=== PATIENT | male | born 1980 | race Hispanic/Latino ===

== ENCOUNTER 2017-05-08 08:48 | Emergency (ER) | payer SELFPAY ==
[2017-05-08] MEDS ORDERED: ONDANSETRON ODT 4 MG TAB ONE (09:01)
[2017-05-08 09:42] LABS: RAPID GROUP A STREP NEGATIVE (NEGATIVE)
[2017-05-08] MEDS ORDERED: PROMETHAZINE HCL 25 MG/ML 1ML AMPULE IM ONE (10:50)
[2017-05-08] MEDS ORDERED: SODIUM CHLORIDE 0.9% 1000ML 1,000 ML IV ONE (10:50)
[2017-05-08 10:56] LABS: BASOPHILS % (AUTO) 0.4 % (0.0-5.0); EOSINOPHILS % (AUTO) 5.7 % (0.0-8.0); HEMATOCRIT 51.2 % (42-54); MEAN CORPUSCULAR HEMOGLOBIN 31.6 pg (27.0-33.0); MEAN CORPUSCULAR HGB CONC 34.9 g/dL (32.0-36.0); MEAN CORPUSCULAR VOLUME 90.5 fL (79-99); MONOCYTES % (AUTO) 7.8 % (3.0-13.0); NEUTROPHILS % (AUTO) 66.1 % (40.0-77.0); NUCLEATED RED BLOOD CELLS 0.1 % (0.0-0.19); PLATELET COUNT (AUTO) 299 K/uL (130-400); RED BLOOD CELL COUNT(AUTO) 5.65 MIL/uL (4.50-6.20); RED CELL DISTRIBUTION WIDTH 13.3 % (11.0-15.5)
[2017-05-08 11:07] LABS: CREATININE 1.1 mg/dL (0.5-1.5); POTASSIUM 4.5 mmol/L (3.5-5.1)
[2017-05-08 11:13] LABS: BILIRUBIN,TOTAL 0.7 mg/dL (0.2-1.0); TOTAL PROTEIN, SERUM 8.1 g/dL (6.0-8.3)
== END 2017-05-08 14:26 | disposition home or self-care (01) ==
LOC: EDH 08:48
DX: K52.9 Noninfective gastroenteritis and colitis, unspecified (principal)
CPT/HCPCS: 36415; 71046; 80053; 82550; 83690; 84484; 85025; 87804 ×2; 87880; 93005; 96365; 99285; J2550; J7030

== ENCOUNTER 2018-05-13 23:44 | Emergency (ER) | payer OTHER ==
[2018-05-14 00:13] LABS: BASOPHILS % (AUTO) 1.3 % (0.0-5.0); EOSINOPHILS % (AUTO) 10.9 % (0.0-8.0); HEMATOCRIT 48.9 % (42-54); LYMPHOCYTES % (AUTO) 31.5 % (21.0-51.0); MEAN CORPUSCULAR HEMOGLOBIN 31.1 pg (27.0-33.0); MEAN CORPUSCULAR HGB CONC 34.4 g/dL (32.0-36.0); MEAN CORPUSCULAR VOLUME 90.6 fL (79-99); MONOCYTES % (AUTO) 7.2 % (3.0-13.0); NEUTROPHILS % (AUTO) 49.1 % (40.0-77.0); NUCLEATED RED BLOOD CELLS 0.1 % (0.0-0.19); PLATELET COUNT (AUTO) 252 K/uL (130-400); RED BLOOD CELL COUNT(AUTO) 5.39 MIL/uL (4.50-6.20); RED CELL DISTRIBUTION WIDTH 13.1 % (11.0-15.5); WHITE BLOOD COUNT (AUTO) 7.8 K/uL (4.8-10.8)
[2018-05-14 00:19] LABS: BILIRUBIN,URINE Negative (NEGATIVE); COLOR,URINE Yellow (YELLOW); GLUCOSE, URINE (UA) Negative (NEGATIVE); KETONES,URINE Negative (NEGATIVE); LEUKOCYTE ESTERASE ,URINE Negative (NEGATIVE); NITRATE,URINE Negative (NEGATIVE); OCCULT BLOOD,URINE Negative (NEGATIVE); PH,URINE 6.5 (5.0-8.0); PROTEIN,URINE Negative (NEGATIVE)
[2018-05-14 00:22] LABS: APPEARANCE,URINE CLEAR (CLEAR)
[2018-05-14 00:27] LABS: CARBON DIOXIDE 25 mmol/L (21-32); CHLORIDE 103 mmol/L (101-111); CREATININE 0.9 mg/dL (0.5-1.5); GLOMERULAR FILTR. RATE CALC 101 mL/min (>60); GLUCOSE,RANDOM 119 mg/dL (70-105); POTASSIUM 3.9 mmol/L (3.5-5.1); SODIUM SERUM 141 mmol/L (136-145); UREA NITROGEN, BLOOD 16 mg/dL (7-18)
[2018-05-14 00:27] LABS: AMPHET/METH SCREEN,URINE NEGATIVE (NEGATIVE); BARBITURATE SCREEN, URINE NEGATIVE (NEGATIVE); BENZODIAZEPINES SCREEN,URINE NEGATIVE (NEGATIVE); CANNABINOID SCREEN,URINE NEGATIVE (NEGATIVE); COCAINE SCREEN,URINE POSITIVE (NEGATIVE); OPIATE SCREEN,URINE NEGATIVE (NEGATIVE); PHENCYCLIDINE SCREEN,URINE NEGATIVE (NEGATIVE)
[2018-05-14 00:31] LABS: ALANINE AMINOTRANSFERASE 79 U/L (12-78); ALBUMIN 3.6 g/dL (3.5-5.0); AMYLASE 56 U/L (25-115); ASPARTATE AMINOTRANSFERASE 30 U/L (10-37); BILIRUBIN,TOTAL 0.4 mg/dL (0.2-1.0); CREATINE KINASE, TOTAL 147 U/L (21-232); LIPASE 301 U/L (114-286); TOTAL PROTEIN, SERUM 7.6 g/dL (6.0-8.3)
[2018-05-14 00:41] LABS: ALCOHOL, BLOOD < 3 mg/dL (0-10)
[2018-05-14] MEDS ORDERED: HYOSCYAMINE SULFATE 0.125 MG TAB.SUBL SL ONE (01:08)
== END 2018-05-14 01:55 | disposition home or self-care (01) ==
LOC: EDH 23:44
DX: R10.32 Left lower quadrant pain (principal); F14.10 Cocaine abuse, uncomplicated; F10.20 Alcohol dependence, uncomplicated
CPT/HCPCS: 36415; 71045; 74176; 80053; 80305; 81003; 82150; 82550; 83690; 84484; 85025; 93005; 99284; G0480

== ENCOUNTER 2021-12-21 07:38 | Emergency (ER) | payer OTHER ==
[~2021-12-21] VITALS: Ht 165.1 cm; Wt 86.2 kg
[2021-12-21] MEDS ORDERED: MORPHINE 4 MG SYG IVP ONE (08:00)
[2021-12-21 08:22] LABS: BASOPHILS % (AUTO) 0.7 % (0.0-5.0); EOSINOPHILS % (AUTO) 3.7 % (0.0-8.0); HEMATOCRIT 46.1 % (42-54); LYMPHOCYTES % (AUTO) 29.6 % (21.0-51.0); MEAN CORPUSCULAR HEMOGLOBIN 31.2 pg (27.0-33.0); MEAN CORPUSCULAR HGB CONC 35.6 g/dL (32.0-36.0); MEAN CORPUSCULAR VOLUME 87.6 fL (79-99); MONOCYTES % (AUTO) 9.4 % (3.0-13.0); NEUTROPHILS % (AUTO) 55.9 % (40.0-77.0); PLATELET COUNT (AUTO) 273 K/uL (130-400); RED BLOOD CELL COUNT(AUTO) 5.26 MIL/uL (4.50-6.20); RED CELL DISTRIBUTION WIDTH 13.1 % (11.0-15.5); WHITE BLOOD COUNT (AUTO) 9.2 K/uL (4.8-10.8)
[2021-12-21 08:34] LABS: CARBON DIOXIDE 26 mmol/L (21-32); CHLORIDE 101 mmol/L (101-111); CREATININE 0.9 mg/dL (0.5-1.5); GLOMERULAR FILTR. RATE CALC 100 mL/min (>60); GLUCOSE,RANDOM 94 mg/dL (70-105); POTASSIUM 3.7 mmol/L (3.5-5.1); SODIUM SERUM 136 mmol/L (136-145); UREA NITROGEN, BLOOD 8 mg/dL (7-18)
[2021-12-21 08:47] LABS: ALANINE AMINOTRANSFERASE 80 U/L (12-78); ALBUMIN 3.5 g/dL (3.5-5.0); ASPARTATE AMINOTRANSFERASE 44 U/L (10-37); THYROID STIMULATING HORMONE 3.74 uIU/mL (0.36-3.74); TOTAL PROTEIN, SERUM 7.8 g/dL (6.0-8.3); URIC ACID 7.8 mg/dL (2.6-7.2)
[2021-12-21] MEDS ORDERED: KETOROLAC 30MG VIAL (30MG/ML) IVP ONE (09:00)
[2021-12-21] MEDS ORDERED: SOLU-MEDROL 125MG VIAL IVP ONE (09:00)
[2021-12-21 09:42] LABS: CRP QUANTITATIVE < 2.00 mg/L (0.00-9.0)
[2021-12-21 10:24] VITALS: BP 144/85
[2021-12-21] MEDS ORDERED: NAPR-1180 PO (10:28)
[2021-12-21] MEDS ORDERED: PRED20TA3 PO (10:28)
== END 2021-12-21 10:42 | disposition home or self-care (01) ==
LOC: EDH 07:38
DX: M10.072 Idiopathic gout, left ankle and foot (principal); R03.0 Elevated blood-pressure reading, without diagnosis of hypertension; K21.9 Gastro-esophageal reflux disease without esophagitis; Z98.890 Other specified postprocedural states
CPT/HCPCS: 99284; 96374; 96375; 84443; 83735; 84550; 80053; 85025; 86140; 36415; 73660; J2930; J2270; J1885

== ENCOUNTER 2022-12-27 08:24 | Emergency (ER) | payer BC, OTHER ==
[~2022-12-27] VITALS: Ht 165.1 cm; Wt 95.3 kg
[~2022-12-27 08:24] MED LIST: NAPR-1180 PO; PRED20TA3 PO
[2022-12-27] MEDS ORDERED: LACTATED RINGERS 1000ML 1,000 ML IV ONE (09:00)
[2022-12-27] MEDS ORDERED: ONDANSETRON 4MG INJ IVP ONE (09:00)
[2022-12-27] MEDS ORDERED: KETOROLAC 30MG VIAL (30MG/ML) IVP ONE (09:00)
[2022-12-27 09:01] LABS: BASOPHILS # (AUTO) 0.05 K/uL (0.00-0.20); BASOPHILS % (AUTO) 0.8 % (0.0-5.0); EOSINOPHILS # (AUTO) 0.53 K/uL (0.00-0.70); EOSINOPHILS % (AUTO) 8.3 % (0.0-8.0); IMMATURE GRANULOCYTE ABSOLUTE 0.02 K/uL (0-1); LYMPHOCYTES # (AUTO) 1.9 K/uL (1.0-4.8); LYMPHOCYTES % (AUTO) 29.8 % (21.0-51.0); MEAN CORPUSCULAR HEMOGLOBIN 31.7 pg (27.0-33.0); MEAN CORPUSCULAR HGB CONC 34.7 g/dL (32.0-36.0); MEAN CORPUSCULAR VOLUME 91.3 fL (79-99); MONOCYTES # (AUTO) 0.6 K/uL (0.1-1.0); MONOCYTES % (AUTO) 8.6 % (3.0-13.0); NEUTROPHILS # (AUTO) 3.3 K/uL (1.8-7.7); NEUTROPHILS % (AUTO) 52.2 % (40.0-77.0); PLATELET COUNT (AUTO) 221 K/uL (130-400); RED BLOOD CELL COUNT(AUTO) 5.15 MIL/uL (4.50-6.20); RED CELL DISTRIBUTION WIDTH 12.7 % (11.0-15.5); WHITE BLOOD COUNT (AUTO) 6.4 K/uL (4.8-10.8)
[2022-12-27 09:12] LABS: CARBON DIOXIDE 26 mmol/L (21-32); CHLORIDE 104 mmol/L (101-111); CREATININE 0.9 mg/dL (0.5-1.5); GLOMERULAR FILTR. RATE CALC 110 mL/min (>90); GLUCOSE,RANDOM 109 mg/dL (70-105); SODIUM SERUM 138 mmol/L (136-145); UREA NITROGEN, BLOOD 9 mg/dL (7-18)
[2022-12-27 09:16] LABS: ALANINE AMINOTRANSFERASE 67 U/L (12-78); ALBUMIN 3.7 g/dL (3.5-5.0); ALCOHOL, BLOOD < 3 mg/dL (0-10); ASPARTATE AMINOTRANSFERASE 52 U/L (10-37); BILIRUBIN,TOTAL 0.8 mg/dL (0.2-1.0); TOTAL PROTEIN, SERUM 7.9 g/dL (6.0-8.3)
[2022-12-27 09:30] LABS: APPEARANCE,URINE CLEAR (CLEAR); BILIRUBIN,URINE NEGATIVE (NEGATIVE); COLOR,URINE YELLOW (YELLOW); GLUCOSE, URINE (UA) NEGATIVE (NEGATIVE); KETONES,URINE NEGATIVE (NEGATIVE); LEUKOCYTE ESTERASE ,URINE 250 Leu/uL (NEGATIVE); NITRATE,URINE NEGATIVE (NEGATIVE); OCCULT BLOOD,URINE NEGATIVE (NEGATIVE); PH,URINE 5.5 (5.0-8.0); PROTEIN,URINE NEGATIVE (NEGATIVE); UROBILINOGEN,URINE 0.2 mg/dL (0.2-1.0)
[2022-12-27 09:45] LABS: ADD UA MICROSCOPIC YES
[2022-12-27 09:51] LABS: MUCUS,URINE RARE LPF (None Seen); SQUAMOUS EPITHELIAL CELL,UR RARE /HPF (0-2)
[2022-12-27] MEDS ORDERED: ATOR40TA69 PO (09:55)
[2022-12-27] MEDS ORDERED: ASPI-1114 PO (09:55)
[2022-12-27] MEDS ORDERED: FERS325 PO (09:55)
[2022-12-27] MEDS ORDERED: ICOS1CAP PO (09:55)
[2022-12-27] MEDS ORDERED: CLOP75TA32 PO (09:55)
[2022-12-27] MEDS ORDERED: FAMO40TA7 PO (09:55)
[2022-12-27] MEDS ORDERED: TRAM50TA4 PO (09:55)
[2022-12-27] MEDS ORDERED: SITA100T12 PO (09:55)
[2022-12-27] MEDS ORDERED: OLME-11 PO (09:55)
[2022-12-27] MEDS ORDERED: CARV25TA PO (09:55)
[2022-12-27] MEDS ORDERED: GABA300S3 PO (09:55)
[2022-12-27] MEDS ORDERED: SULF1TAB42 PO (12:10)
[2022-12-27] MEDS ORDERED: IBUP-2070 PO (12:10)
[2022-12-27 12:11] VITALS: BP 129/88; PULSE 66; RESP 14; O2SAT 99
== END 2022-12-27 12:19 | disposition home or self-care (01) ==
LOC: EDH 08:24
DX: N39.0 Urinary tract infection, site not specified (principal); N20.0 Calculus of kidney; M79.18 Myalgia, other site; Z79.82 Long term (current) use of aspirin; Z79.899 Other long term (current) drug therapy; Z98.890 Other specified postprocedural states
CPT/HCPCS: 99284; 74176; 96374; 96361; 80053; 83690; 85025; 87088; 81001; 36415; J7120; J1885

== ENCOUNTER 2023-04-30 08:24 | Emergency (ER) | payer BC ==
[~2023-04-30] VITALS: Ht 165.1 cm; Wt 87.1 kg
[~2023-04-30 08:24] MED LIST changes: +IBUP-2070 PO; -NAPR-1180 PO; -PRED20TA3 PO; +SULF1TAB42 PO
[2023-04-30 09:10] LABS: RAPID GROUP A STREP negative (NEGATIVE); SARS-CoV-2, RNA, NAAT NEGATIVE SARS CoV-2 (NEGATIVE)
[2023-04-30] MEDS: ONDANSETRON 4MG INJ IVP ONE (09:12)
[2023-04-30] MEDS: MORPHINE 4 MG SYG IVP ONE (09:13)
[2023-04-30 09:19] LABS: BASOPHILS # (AUTO) 0.08 K/uL (0.00-0.20); BASOPHILS % (AUTO) 0.9 % (0.0-5.0); EOSINOPHILS # (AUTO) 0.51 K/uL (0.00-0.70); EOSINOPHILS % (AUTO) 5.7 % (0.0-8.0); HEMATOCRIT 50.5 % (42-54); IMMATURE GRANULOCYTE ABSOLUTE 0.04 K/uL (0-1); LYMPHOCYTES % (AUTO) 22.1 % (21.0-51.0); MEAN CORPUSCULAR HEMOGLOBIN 31.9 pg (27.0-33.0); MEAN CORPUSCULAR HGB CONC 34.1 g/dL (32.0-36.0); MEAN CORPUSCULAR VOLUME 93.7 fL (79-99); MONOCYTES # (AUTO) 0.8 K/uL (0.1-1.0); MONOCYTES % (AUTO) 8.4 % (3.0-13.0); NEUTROPHILS # (AUTO) 5.6 K/uL (1.8-7.7); NEUTROPHILS % (AUTO) 62.5 % (40.0-77.0); PLATELET COUNT (AUTO) 255 K/uL (130-400); RED BLOOD CELL COUNT(AUTO) 5.39 MIL/uL (4.50-6.20); WHITE BLOOD COUNT (AUTO) 8.9 K/uL (4.8-10.8)
[2023-04-30 09:20] LABS: INFLUENZA TYPE A Negative For Type A (NEGATIVE); INFLUENZA TYPE B Negative For Type B (NEGATIVE)
[2023-04-30 09:20] LABS: CREATININE 0.9 mg/dL (0.5-1.5); POTASSIUM 4.3 mmol/L (3.5-5.1)
[2023-04-30 09:24] LABS: ALBUMIN 3.4 g/dL (3.5-5.0); BILIRUBIN,TOTAL 0.4 mg/dL (0.2-1.0); TOTAL PROTEIN, SERUM 7.5 g/dL (6.0-8.3)
[2023-04-30] MEDS: LACTATED RINGERS 1000ML 1,000 ML IV ONE (09:30)
[2023-04-30 09:42] LABS: APPEARANCE,URINE CLEAR (CLEAR); BILIRUBIN,URINE NEGATIVE (NEGATIVE); COLOR,URINE YELLOW (YELLOW); GLUCOSE, URINE (UA) NEGATIVE (NEGATIVE); KETONES,URINE NEGATIVE (NEGATIVE); LEUKOCYTE ESTERASE ,URINE 25 Leu/uL (NEGATIVE); NITRATE,URINE NEGATIVE (NEGATIVE); OCCULT BLOOD,URINE NEGATIVE (NEGATIVE); PROTEIN,URINE 10 mg/dL (NEGATIVE); UROBILINOGEN,URINE 3 mg/dL (0.2-1.0)
[2023-04-30 09:45] LABS: ADD UA MICROSCOPIC YES
[2023-04-30 09:47] LABS: MUCUS,URINE RARE LPF (None Seen)
[2023-04-30] MEDS ORDERED: IOHEXOL 350 MG/ML 100ML INFUS..BTL IV ONE (10:19)
[2023-04-30 12:01] VITALS: BP 141/68; PULSE 68; RESP 18; O2SAT 98
[2023-04-30] MEDS ORDERED: CEFP200T14 PO (12:51)
[2023-04-30] MEDS ORDERED: GUAI5LIQ13 PO (12:51)
== END 2023-04-30 13:02 | disposition home or self-care (01) ==
LOC: EDH 08:24
DX: J06.9 Acute upper respiratory infection, unspecified (principal); R10.32 Left lower quadrant pain; N39.0 Urinary tract infection, site not specified; Z20.822 Contact with and (suspected) exposure to COVID-19; Z79.899 Other long term (current) drug therapy; Z98.890 Other specified postprocedural states
CPT/HCPCS: 99284; 74177; 96374; 71045; 87635; 96361; 96375; 80053; 85025; 87088; 87880; 87804 ×2; 81001; 36415; J7120; J2405; J2270; Q9967

== ENCOUNTER 2023-07-10 15:33 | Emergency (ER) | payer BC, OTHER ==
[~2023-07-10] VITALS: Ht 165.1 cm; Wt 93.0 kg
[~2023-07-10 15:33] MED LIST changes: +CEFP200T14 PO; +GUAI5LIQ13 PO
[2023-07-10 15:48] VITALS: BP 148/95; PULSE 73; RESP 18
[2023-07-10] MEDS: IBUPROFEN 600 MG TABLET PO ONE (17:28)
== END 2023-07-10 18:45 | disposition left against medical advice (07) ==
LOC: EDH 15:33
DX: M79.642 Pain in left hand (principal); Z53.21 Procedure and treatment not carried out due to patient leaving prior to being seen by health care provider
CPT/HCPCS: 73130; 73140; 99281